=== PATIENT | female | born 1990 | race Two or more races ===

== ENCOUNTER 2021-11-04 08:30 | Emergency (ER) | payer OTHER ==
[~2021-11-04] VITALS: Ht 170.2 cm; Wt 103.4 kg
[2021-11-04] MEDS ORDERED: PRENATAL MULTI1 EAC3 (09:02)
== END 2021-11-04 12:20 | disposition home or self-care (01) ==
LOC: ER 08:30
DX: O20.9 Hemorrhage in early pregnancy, unspecified (principal); Z3A.12 12 weeks gestation of pregnancy

== ENCOUNTER → 2021-11-23 | Day surgery (SDC) | payer OTHER ==
[~2021-11-23] VITALS: Ht 170.2 cm; Wt 101.2 kg
[~2021-11-23] MED LIST: PRENATAL MULTI1 EAC3
== END | disposition home or self-care (01) ==
LOC: CIR.AMB 09:32 → SURH 10:44 → EDSTATUS 11:17 → CIR.AMB 11:21
PROVIDERS: ATTEND Obstetrics & Gynecology
DX: O34.32 Maternal care for cervical incompetence, second trimester (principal); Z3A.16 16 weeks gestation of pregnancy; Z20.822 Contact with and (suspected) exposure to COVID-19

== ENCOUNTER 2022-01-04 07:51 | Outpatient (CLI) | payer OTHER | END 2022-01-04 09:15 | disposition home or self-care (01) | LOC: PRENATAL 07:51 | PROVIDERS: ATTEND Obstetrics & Gynecology Maternal & Fetal Medicine | DX: O35.1XX1 Maternal care for (suspected) chromosomal abnormality in fetus, fetus 1 (principal); O35.3XX0 Maternal care for (suspected) damage to fetus from viral disease in mother, not applicable or unspecified; O34.30 Maternal care for cervical incompetence, unspecified trimester; Z3A.20 20 weeks gestation of pregnancy ==

== ENCOUNTER 2022-04-26 08:41 | Outpatient (CLI) | payer OTHER ==
[~2022-04-26] VITALS: Ht 172.7 cm; Wt 105.2 kg
== END 2022-04-26 13:40 | disposition home or self-care (01) ==
LOC: OBS/DEL 08:41
PROVIDERS: ATTEND Obstetrics & Gynecology
DX: O34.33 Maternal care for cervical incompetence, third trimester (principal); O26.893 Other specified pregnancy related conditions, third trimester; Z3A.36 36 weeks gestation of pregnancy

== ENCOUNTER 2022-05-10 08:49 | Inpatient (IN) | payer OTHER ==
[~2022-05-10] VITALS: Ht 170.2 cm; Wt 104.3 kg
[2022-05-10] MEDS ORDERED: AMPICILLIN TRI500 MG PO (12:15)
== END 2022-05-12 14:12 | disposition home or self-care (01) | DRG 807 ==
LOC: LDR 08:49 → OB/GYN 08:49 → LDR 09:01 → OB/GYN 21:29
PROVIDERS: ADMIT Obstetrics & Gynecology; ATTEND Obstetrics & Gynecology
PROC: 10E0XZZ Delivery of Products of Conception, External Approach (ICD-10-PCS; principal; 2022-05-10)
PROC: 0KQM0ZZ Repair Perineum Muscle, Open Approach (ICD-10-PCS; 2022-05-10)
PROC: 4A1HXCZ Monitoring of Products of Conception, Cardiac Rate, External Approach (ICD-10-PCS; 2022-05-10)
DX: O70.1 Second degree perineal laceration during delivery (principal); Z37.0 Single live birth; Z3A.38 38 weeks gestation of pregnancy; Z20.822 Contact with and (suspected) exposure to COVID-19